=== PATIENT | male | born 1980 | race African-American/Black ===

== ENCOUNTER 2023-09-16 19:30 | Emergency (ER) | payer MEDICAID ==
[~2023-09-16] VITALS: Ht 167.6 cm; Wt 105.0 kg
[2023-09-16 19:34] VITALS: BP 149/93; PULSE 73; RESP 16; TEMP 98.4; O2SAT 98
[2023-09-16] MEDS: TETanus/Pertussis (Acell)/Diphther VAC/PF (Tdap-Adult) 0.5ml syringe IMVAC ONE (19:47)
[2023-09-16] MEDS: LIDOcaine 1% 30ml preserv. free vial IJ ONE (20:06)
[2023-09-16] MEDS ORDERED: CEPH500C81 PO (20:18)
== END 2023-09-16 20:32 | disposition home or self-care (01) ==
LOC: ER 19:31
DX: S61.011A Laceration without foreign body of right thumb without damage to nail, initial encounter (principal); Z79.2 Long term (current) use of antibiotics; W26.8XXA Contact with other sharp object(s), not elsewhere classified, initial encounter; Y93.89 Activity, other specified; Y92.89 Other specified places as the place of occurrence of the external cause; Y99.8 Other external cause status
CPT/HCPCS: 29125; 90471; 90715; 99283; A6222; J7030; A6449

== ENCOUNTER 2024-12-16 10:17 | Emergency (ER) | payer MEDICAID ==
[~2024-12-16] VITALS: Ht 167.6 cm; Wt 100.0 kg
[2024-12-16 10:35] VITALS: BP 144/93; PULSE 76; RESP 16; O2SAT 100
[2024-12-16] MEDS: dexamethasone sod phosphate 10mg/ml inj PO STA (11:41)
--- NOTE | 2024-12-16 11:45 | Physician Documentation ---
History of Present Illness ~ Chief Complaint: Foot pain Stated Complaint: FOOT PAIN Time Seen by MD: 11:16 Primary Medical Doctor: NO PMD HPI Presents with 2-3 days of left foot pain without injury. The pain is primarily in the ball of his foot. . He reports that the pain only happens when he bears weight. denies numbsness or tingling Tetanus witin 5 years: Yes (SEPTEMBER 2023) Medication Reconciliation Allergies: Uncoded Allergies: IVP DYE (Allergy, Unknown, VOMIT, 10/29/16) MUSHROOM (Adverse Reaction, Intermediate, 12/03/09) Past Medical History Past Medical History: No Pertinent History Past Surgical History: no surgical history Alcohol Use: None Drug Use: none Lives with: Spouse Lives In: Home Occupation: employed Review of Systems All Other Systems at this time: Reviewed and Negative Physical Exam Vital Signs: Temperature: 97.4, Source: Temporal, Heart Rate: 76, Respiratory Rate: 16, BP: 144/93, Pulse Oximetry: 100, Weight: 100.000 Oxygen Flow Rate: 0 Physical Exam General: Alert, no apparent distress. HEENT: PERRL, EOMI, no injection, moist mucous membranes. Extremities: Normal range of motion, no deformity. tender to ball of foot via palpation Neurologic: Oriented x4. Psychiatric: Normal mood and affect. Skin: Normal color, warm and dry. No edema, no ecchymosis. Progress Results/Orders Results/Orders Completed Orders - TORSTEN WALSH NP Dexamethasone Inj (Decadron 10mg/Ml Inj) (12/16/24 11:23) Medications Received in ER Medications (Trade) Dose Ordered Sig/Harish Route PRN Reason Start Time Stop Time Status Last Admin Dose Admin (Decadron 10mg/ ml inj) 10 mg ONCE STAT PO 12/16/24 11:23 12/16/24 11:26 DC 12/16/24 11:41 10 MG Vital Signs 12/16/24 10:35 Temp 97.4 Pulse 76 Resp 16 B/P (MAP) 144/93 Pulse Ox 100 O2 Flow Rate 0 Medical Decision Making Findings Presenting to the all the clinical indications of plantar fasciitis I told him to take ibuprofen and I gave him dexamethasone to help with pain and inflammation Foot Diff Dx:Considerations: Include: Abrasion, Arthritis, Cellulitis, Contusion, Dislocation, DJD, Fracture-metatarsal, Fracture-phalynx, Fracture- tarsal, Gout, Hematoma, Ingrown toenail, Laceration, Malunion, Neurovascular injury, Open fracture, Paronychia, Puncture, Rheumatoid, Sprain, Septic, Subungual hematoma, Ulcer, Other Departure Disposition: 01 HOME / SELF CARE / HOMELESS Impression: Primary Impression: Plantar fasciitis Discharge Instructions: Plantar Fasciitis Referrals: NO PRIMARY CARE PROVIDER (PCP) Signature Scribe Signature: d Attestation: Scribed for Torsten Walsh Seasonal Package Handler by Torsten Obando NP . 12/16/24 11:47 TORSTEN WALSH NP Dec 16, 2024 11:45
[2024-12-16 11:58] VITALS: TEMP 97.4
== END 2024-12-16 12:00 | disposition home or self-care (01) ==
LOC: ER 10:18
DX: M72.2 Plantar fascial fibromatosis (principal)
CPT/HCPCS: 99283; J1100